=== PATIENT | male | born 1980 | race Asian ===

== ENCOUNTER 2018-08-21 14:49 | Emergency (ER) | payer OTHER ==
[~2018-08-21] VITALS: Ht 175.3 cm; Wt 81.6 kg
--- NOTE | 2018-08-21 14:45 | NUR ---
ED Nurse Note: Pt BIBA from home complaining of LLQ abdominal pain x 1 hour ago. Pt is complaining of 10/10 pain. Non radiating. Pt presented in the ER grimacing and restless. Pt has a hx of thyroid cancer and had his surgery 1 year ago. Pt is A + O x4. Ambulatory. Skin warm to touch.
--- NOTE | 2018-08-21 14:49 | Emergency Room Report ---
History of Present Illness General Chief Complaint: Abdominal Pain Source: Patient Present Illness HPI Patient is a 38-year-old male presented after increased left-sided flank pain. Patient had sudden onset of symptoms approximately 1 hour prior to arrival. Patient had prior history of thyroid cancer and had previous thyroidectomy currently takes Synthroid. He denies other medications. He reports having normal bowel movements. Patient states that he takes vitamin D supplements. He denies any fever. He reports having severe pain which was unchanged by position. Pain was sharp in nature. 10 out of 10 Allergies: Coded Allergies: No Known Allergies (Unverified , 08/21/18) Patient History Past Medical History: see triage record Reviewed Nursing Documentation: PMH: Agreed; PSxH: Agreed Review of Systems All Other Systems: negative except mentioned in HPI Physical Exam Vital Signs Date Time Temp Pulse Resp B/P (MAP) Pulse Ox O2 Delivery O2 Flow Rate FiO2 08/21/18 14:37 97.3 80 18 135/80 98 Room Air Sp02 EP Interpretation: reviewed, normal General Appearance: normal inspection, well appearing, no apparent distress, alert, GCS 15 Head: atraumatic ENT: normal ENT inspection, hearing grossly normal, normal voice Neck: normal inspection, full range of motion, supple, no bony tend Respiratory: normal inspection, lungs clear, normal breath sounds, no respiratory distress, no retraction, no wheezing Cardiovascular #1: regular rate, rhythm, no edema Gastrointestinal: non tender, soft, no guarding, no hernia Genitourinary: no CVA tenderness Musculoskeletal: normal inspection, back normal, normal range of motion Neurologic: normal inspection, alert, oriented x3, responsive, vp integration III-XII nml as tested, speech normal Psychiatric: normal inspection, judgement/insight normal, mood/affect normal Skin: normal inspection, normal color, no rash Medical Decision Making Diagnostic Impression: Primary Impression: Renal calculus, left Additional Impression: Renal insufficiency ER Course . Patient presented for flank pain. Differential diagnosis included was not limited to pneumonia, renal stone, rib fracture, pulmonary embolism, ulcer, enteritis, pyelonephritis among others. Because of complexity of patient's case laboratory testing and imaging studies were ordered. Patient was noted to have prior history of thyroid cancer. Patient is currently on vitamin D supplementation. CT imaging of the abdomen pelvis is ordered to rule out stones. Patient was given IV pain medications.Patient was given IV pain medications with improvement his flank pain.Patient was noted to have CT of abdomen pelvis read by radiology which showed some splenic calcification as well as recently passed ureteral stone. Patient was noted to have a 1mm left renal stone in the lower pole of the kidney patient was noted to have improvement in his pain. Patient was given IV hydration. Patient was advised to have his renal function rechecked with his primary care physician.He was given prescription for pain medications as well as antibiotics Patient was noted to be somewhat somnolent after stone passage. Patient was observed in the emergency department at the time of discharge patient was more awake and ambulatory and had a good respiratory rate. Labs Test 08/21/18 14:57 White Blood Count 8.5 K/UL (4.8-10.8) Red Blood Count 4.84 M/UL (4.70-6.10) Hemoglobin 14.7 G/DL (14.2-18.0) Hematocrit 42.0 % (42.0-52.0) Mean Corpuscular Volume 87 FL (80-99) Mean Corpuscular Hemoglobin 30.3 PG (27.0-31.0) Mean Corpuscular Hemoglobin Concent 34.9 G/DL (32.0-36.0) Red Cell Distribution Width 10.5 % (11.6-14.8) Platelet Count 307 K/UL (150-450) Mean Platelet Volume 6.1 FL (6.5-10.1) Neutrophils (%) (Auto) 72.9 % (45.0-75.0) Lymphocytes (%) (Auto) 17.1 % (20.0-45.0) Monocytes (%) (Auto) 6.4 % (1.0-10.0) Eosinophils (%) (Auto) 2.7 % (0.0-3.0) Basophils (%) (Auto) 0.8 % (0.0-2.0) Prothrombin Time 10.2 SEC (9.30-11.50) Prothromb Time International Ratio 1.0 (0.9-1.1) Activated Partial Thromboplast Time 27 SEC (23-33) Sodium Level 143 MMOL/L (136-145) Potassium Level 3.7 MMOL/L (3.5-5.1) Chloride Level 106 MMOL/L (98-107) Carbon Dioxide Level 26 MMOL/L (21-32) Anion Gap 11 mmol/L (5-15) Blood Urea Nitrogen 20 mg/dL (7-18) Creatinine 1.9 MG/DL (0.55-1.30) Estimat Glomerular Filtration Rate 39.5 mL/min (>60) Glucose Level 116 MG/DL (74-106) Calcium Level 8.5 MG/DL (8.5-10.1) Total Bilirubin 0.4 MG/DL (0.2-1.0) Aspartate Amino Transf (AST/SGOT) 14 U/L (15-37) Alanine Aminotransferase (ALT/SGPT) 21 U/L (12-78) Alkaline Phosphatase 70 U/L (46-116) Total Protein 7.3 G/DL (6.4-8.2) Albumin 3.6 G/DL (3.4-5.0) Globulin 3.7 g/dL Albumin/Globulin Ratio 1.0 (1.0-2.7) Lipase 144 U/L (73-393) EKG Diagnostic Results Rate: normal Rhythm: NSR ST Segments: no acute changes Last Vital Signs Date Time Temp Pulse Resp B/P (MAP) Pulse Ox O2 Delivery O2 Flow Rate FiO2 08/21/18 14:37 97.3 80 18 135/80 98 Room Air Status: improved Disposition: HOME, SELF-CARE Condition: Stable Scripts Hydrocodone Bit/Acetaminophen 5-325* (NORCO 5-325*) 1 Each Tablet 1 TAB ORAL Q6H PRN for For Pain, #10 TAB 0 Refills Prov: Spike Banuelos MD 08/21/18 Ibuprofen (Ibuprofen) 600 Mg Tablet 600 MG PO Q8HR, #30 TAB Prov: Spike Banuelos MD 08/21/18 Cephalexin* (KEFLEX*) 500 Mg Capsule 500 MG ORAL EVERY 6 HOURS, #28 CAP Prov: Spike Banuelos MD 08/21/18 Spike Banuelos MD Aug 21, 2018 14:49
[2018-08-21] MEDS ORDERED: Ketorolac 30mg Inj IV ONE (15:00)
[2018-08-21] MEDS ORDERED: Morphine Sulfate 10mg/ml Inj IVP ONE (15:00)
[2018-08-21 15:12] VITALS: BP 130/83
[2018-08-21 15:24] LABS: BASOPHILS % (AUTO) 0.8 % (0.0-2.0); EOSINOPHILS % (AUTO) 2.7 % (0.0-3.0); HEMOGLOBIN 14.7 G/DL (14.2-18.0); LYMPHOCYTES % (AUTO) 17.1 % (20.0-45.0); MEAN CORPUSCULAR VOLUME 87 FL (80-99); MONOCYTES % (AUTO) 6.4 % (1.0-10.0); NEUTROPHILS % (AUTO) 72.9 % (45.0-75.0); PLATELET COUNT 307 K/UL (150-450); RED BLOOD COUNT 4.84 M/UL (4.70-6.10); RED CELL DISTRIBUTION WIDTH 10.5 % (11.6-14.8); WHITE BLOOD COUNT 8.5 K/UL (4.8-10.8)
[2018-08-21 15:25] LABS: ANION GAP 11 mmol/L (5-15); BLOOD UREA NITROGEN 20 mg/dL (7-18); CALCIUM 8.5 MG/DL (8.5-10.1); CARBON DIOXIDE 26 MMOL/L (21-32); CHLORIDE 106 MMOL/L (98-107); CREATININE 1.9 MG/DL (0.55-1.30); POTASSIUM 3.7 MMOL/L (3.5-5.1); SODIUM 143 MMOL/L (136-145)
--- NOTE | 2018-08-21 15:27 | NUR ---
ED Nurse Note: Received verbal order from ERMD to administer 1L of NS bolus via IV. Carried out order. Will continue to monitor.
[2018-08-21] MEDS ORDERED: LEVOTHYROXINE125 MCG ORAL (15:29)
[2018-08-21 15:30] LABS: ALANINE AMINOTRANSFERASE 21 U/L (12-78); ALBUMIN 3.6 G/DL (3.4-5.0); ALKALINE PHOSPHATASE 70 U/L (46-116); ASPARTATE AMINO TRANSFERASE 14 U/L (15-37); BILIRUBIN,TOTAL 0.4 MG/DL (0.2-1.0)
--- NOTE | 2018-08-21 15:51 | NUR ---
ED Nurse Note: Notified CT of order.
[2018-08-21] MEDS ORDERED: Morphine Sulfate 4mg/ml Inj (IV USE ONLY) IVP ONE (16:00)
--- NOTE | 2018-08-21 16:27 | NUR ---
ED Nurse Note: Pt went down for CT.
--- NOTE | 2018-08-21 16:32 | NUR ---
ED Nurse Note: Pt back from CT.
--- NOTE | 2018-08-21 17:08 | NUR ---
ED Nurse Note: Notified ERMD of pt unable to urinate.
[2018-08-21 17:10] VITALS: BP 126/59
[2018-08-21] MEDS ORDERED: IBUPROFEN600 M1 PO (17:15)
[2018-08-21] MEDS ORDERED: CEPHALEXIN500 MG ORAL (17:15)
[2018-08-21] MEDS ORDERED: NORCO 5-325 TA1 EACH ORAL (17:16)
--- NOTE | 2018-08-21 19:10 | NUR ---
HAND-OFF: Report given to RODRIGUEZ Duvall.
--- NOTE | 2018-08-21 19:11 | NUR ---
ED Nurse Note: Received report from Olman/RODRIGUEZ. Pt is A/O X 4. VSS. Will continue to monitor.
[2018-08-21 19:32] VITALS: BP 132/63
--- NOTE | 2018-08-21 19:32 | NUR ---
ER DISCHARGE NOTE: Patient is cleared to be discharged per Dr. Banuelos. Pt is aox4, on room air, with stable vital signs. Pt was given dc and prescription instructions, pt was able to verbalize understanding, pt id band and iv site removed without complications. Pt is able to ambulate with steady gait, pt took all belongings.
--- NOTE | 2018-08-22 09:50 | Diagnostic Imaging Report ---
Indication: Abdominal pain Technique: Spiral acquisitions obtained through the abdomen and pelvis. No oral contrast utilized, per emergency room physician request No IV contrast utilized, for emergency room physician request.. Multiplanar reconstructions were generated. Total dose length product 807.08 mGycm. CTDIvol(s) 15.03 mGy. Dose reduction achieved using automated exposure control Comparison: None Findings: A calcification is seen in the posterior bladder to the right of midline. This appears remote from the ureteral orifices. There is no evidence of hydronephrosis, hydroureter or ureteral calculi demonstrated. A tiny punctate calculus is seen in the lower pole of the left renal collecting system. Lack of IV contrast limits assessment of the renal parenchyma. No gross renal parenchymal mass or cyst demonstrated. No perinephric fat stranding. The appendix is normal. There is no evidence of diverticulosis or diverticulitis. No small bowel distention. No free or loculated intraperitoneal gas or fluid is evident. The distal esophagus is unremarkable. The stomach is filled with food. Lack of IV contrast limits assessment of the other solid organs. The liver, gallbladder, bile ducts, pancreas are unremarkable. The spleen demonstrates a calcification. The adrenals are unremarkable. No retroperitoneal or mesenteric mass or adenopathy. No pelvic mass or adenopathy. The prostate is somewhat prominent for age, measures 4.8 cm transverse dimension. The lung bases demonstrate posterior dependent atelectatic changes. A calcified granuloma is seen in the medial right middle lobe. The bones are unremarkable. Impression: Bladder calcification, could be mural but most likely represents a recently passed ureteral calculus. There is no evidence of hydronephrosis, hydroureter, or perinephric fat stranding. 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 The CT scanner at [facility] is accredited by the [employer] and the scans are performed using protocols designed to limit radiation exposure to as low as reasonably achievable to attain images of sufficient resolution adequate for diagnostic evaluation.
--- NOTE | 2018-08-24 01:28 | Cardiology Report ---
APPROVED REPORT EKG Measurement Heart [id number] Sinus bradycardia with sinus arrhythmia Right axis deviation Nonspecific intraventricular block T wave abnormality, consider lateral ischemia Abnormal ECG
== END 2018-08-21 19:32 | disposition home or self-care (01) ==
LOC: EDBD 14:49 → EMR 15:00
DX: N20.0 Calculus of kidney (principal); N28.9 Disorder of kidney and ureter, unspecified
CPT/HCPCS: 36415; 74176; 80053; 83690; 85025; 85610; 85730; 86850; 86900; 86901; 93005; 96361; 96374; 96375; 96376; 99284; J1885; J2270; J2405